=== PATIENT | male | born 1950 | race Caucasian/White ===

== ENCOUNTER 2023-04-09 16:33 | Observation (INO) | payer OTHER ==
[~2023-04-09] VITALS: Ht 193 cm; Wt 103.0 kg
[2023-04-09] MEDS ORDERED: BACLOFEN5 M1 PO (17:27)
[2023-04-09] MEDS ORDERED: ASPI81CH PO (17:27)
[2023-04-09] MEDS ORDERED: SILD25T PO (17:28)
[2023-04-09] MEDS ORDERED: DOCU100 PO (17:28)
[2023-04-09] MEDS ORDERED: ZEBUTAL 50-3251 EAC1 (17:28)
[2023-04-09] MEDS ORDERED: GABA100 (17:29)
[2023-04-09] MEDS ORDERED: FINASTERIDE1 MG (17:29)
[2023-04-09] MEDS ORDERED: METF500 PO (17:29)
[2023-04-09] MEDS ORDERED: ATOR10 PO (17:29)
[2023-04-09] MEDS ORDERED: TRAZ50 PO (17:30)
[2023-04-09] MEDS ORDERED: TAMS.4ER PO (17:30)
[2023-04-09 17:40] LABS: BASOPHILS ABSOLUTE AUTO 0.03 K/mm3 (0.00-0.23); BASOPHILS PERCENT AUTO 0 % (0-2); EOSINOPHILS ABSOLUTE AUTO 0.02 K/mm3 (0.00-0.68); EOSINOPHILS PERCENT AUTO 0 % (0-6); Hematocrit 40.4 % (37.0-53.0); Hemoglobin 13.1 g/dL (13.5-17.5); IMMATURE GRAN ABSOLUTE AUTO 0.07 K/mm3 (0.00-0.10); IMMATURE GRAN PERCENT AUTO 1 % (0-1); LYMPHOCYTES ABSOLUTE AUTO 0.38 K/mm3 (0.84-5.20); LYMPHOCYTES PERCENT AUTO 3 % (21-46); MONOCYTES ABSOLUTE AUTO 0.53 K/mm3 (0.16-1.47); MONOCYTES PERCENT AUTO 5 % (4-13); Mean Corpuscular HGB 30.3 pg (26.0-34.0); Mean Corpuscular HGB Conc 32.4 g/dL (31.5-36.5); Mean Corpuscular Volume 94 fL (80-100); Mean Platelet Volume 10.3 fL (9.1-12.4); NEUTROPHILS ABSOLUTE AUTO 10.47 K/mm3 (1.96-9.15); NEUTROPHILS PERCENT AUTO 91 % (41-73); Platelet Count 223 K/mm3 (150-400); RDW Coefficient Variation 13.2 % (11.7-14.2); RDW Standard Deviation 45.5 fL (35.1-46.3); Red Blood Cell Count 4.32 M/mm3 (4.30-5.90)
[2023-04-09 17:52] LABS: Influenza A, PCR NEGATIVE (NEGATIVE); Influenza B, PCR NEGATIVE (NEGATIVE); Resp Syncytial Virus, PCR NEGATIVE (NEGATIVE); SARS-Cov-2 (COVID-19) PCR, MMC NEGATIVE (NEGATIVE)
[2023-04-09 17:55] LABS: Albumin, Blood 3.2 g/dL (3.4-5.0); Albumin/Globulin Ratio 0.7 (0.8-1.8); Bilirubin, Total 0.4 mg/dL (0.1-1.0); Bun/Creatinine Ratio 15.8 (12.0-20.0); Calcium, Blood 8.9 mg/dL (8.5-10.1); Creatinine, Blood 1.39 mg/dL (0.60-1.20); Globulin, Blood 4.3 g/dL (2.2-4.0); Total Protein, Blood 7.5 g/dL (6.4-8.2)
[2023-04-09] MEDS ORDERED: FINA5 PO (20:10)
[2023-04-09] MEDS ORDERED: SENNA LAXATIVE8.6 MG PO (20:15)
[2023-04-09] MEDS ORDERED: GABA800 PO (20:19)
[2023-04-09] MEDS ORDERED: JARDIANCE25 MG PO (20:20)
[2023-04-09] MEDS ORDERED: Acetaminophen650 M1 PO (20:21)
[2023-04-09 21:12] VITALS: BP 106/57
[2023-04-10 04:41] VITALS: BP 122/64
--- NOTE | 2023-04-10 05:28 | NUR ---
Shift Summary Pt came to this unit from the ED with LLL pneumonia. At home he was experiencing increasing SoB and weakness with loss of balance. After treatment in the ED he started feeling much better, and on this floor pt states he is almost at baseline. Pt is AOx4, independent in the room, steady on his feet, on room air. Rcving IV Abx. Pt has DM2 which is normally controlled through oral medication.
[2023-04-10 05:41] LABS: Hematocrit 37.7 % (37.0-53.0); Hemoglobin 12.1 g/dL (13.5-17.5); Mean Corpuscular HGB 30.7 pg (26.0-34.0); Mean Corpuscular HGB Conc 32.1 g/dL (31.5-36.5); Mean Corpuscular Volume 96 fL (80-100); Mean Platelet Volume 10.4 fL (9.1-12.4); Platelet Count 203 K/mm3 (150-400); RDW Coefficient Variation 13.2 % (11.7-14.2); RDW Standard Deviation 47.5 fL (35.1-46.3); Red Blood Cell Count 3.94 M/mm3 (4.30-5.90); White Blood Cell Count 10.06 K/mm3 (4.00-11.30)
[2023-04-10 06:27] LABS: Bun/Creatinine Ratio 16.6 (12.0-20.0); Calcium, Blood 8.4 mg/dL (8.5-10.1); Creatinine, Blood 1.57 mg/dL (0.60-1.20); Potassium, Blood 3.7 mmol/L (3.5-5.5)
[2023-04-10 07:39] VITALS: BP 111/59
[2023-04-10] MEDS ORDERED: GABA300 PO (13:46)
[2023-04-10] MEDS ORDERED: AZIT500 PO (13:47)
[2023-04-10] MEDS ORDERED: VISBIOME 112.51 EACH PO (13:47)
[2023-04-10] MEDS ORDERED: CEFIXIME400 MG PO (13:47)
--- NOTE | 2023-04-10 15:31 | NUR ---
1500- PT BROUGHT DOWN FOR DC IN STABLE CONDITION IN . PT PICKED UP BY [facility]. PT LEFT WITH ALL BELONGINGS.
== END 2023-04-10 15:02 | disposition home or self-care (01) ==
LOC: ER 16:33 → MEDS 16:34 → ENPENDDIS 04-10 12:47 → MEDS 04-10 15:02
PROVIDERS: Nurse Practitioner Acute Care; Student in an Organized Health Care Education/Training Program; ADMIT Internal Medicine
DX: J18.9 Pneumonia, unspecified organism (principal); Z11.52 Encounter for screening for COVID-19
CPT/HCPCS: 0241U; 36415; 71046; 80048; 80053; 82947; 83605; 83735; 85025; 85027; 87081; 87430; 93005; 93010; 96361; 96365; 96366; 96372; 96375; 99285-25; A9270; G0378; J0456; J0696; J1650; J1885; J7030; J7050

== ENCOUNTER 2023-08-31 16:55 | Emergency (ER) | payer OTHER ==
[~2023-08-31] VITALS: Ht 193 cm; Wt 97.5 kg
[~2023-08-31 16:55] MED LIST: ASPI81CH PO; ATOR10 PO; AZIT500 PO; Acetaminophen650 M1 PO; BACLOFEN5 M1 PO; CEFIXIME400 MG PO; DOCU100 PO; FINA5 PO; FINASTERIDE1 MG; GABA100; GABA300 PO; GABA800 PO; JARDIANCE25 MG PO; METF500 PO; SENNA LAXATIVE8.6 MG PO; SILD25T PO; TAMS.4ER PO; TRAZ50 PO; VISBIOME 112.51 EACH PO; ZEBUTAL 50-3251 EAC1
[2023-08-31 17:01] VITALS: BP 149/75
[2023-08-31] MEDS ORDERED: RX Prepack 6 Tabs Oxycodone 5mg UD ONE (17:25)
[2023-08-31] MEDS ORDERED: Acetaminophen 500 MG Tab PO ONE (17:25)
== END 2023-08-31 18:21 | disposition home or self-care (01) ==
LOC: ER 16:55
DX: M79.604 Pain in right leg (principal); M54.41 Lumbago with sciatica, right side; Z79.84 Long term (current) use of oral hypoglycemic drugs; Z79.82 Long term (current) use of aspirin; Z79.2 Long term (current) use of antibiotics; Z79.899 Other long term (current) drug therapy; Z88.8 Allergy status to other drugs, medicaments and biological substances
CPT/HCPCS: 99283; A9270